=== PATIENT | male | born 1980 | race Caucasian/White ===

== ENCOUNTER 2024-05-11 09:00 | Emergency (ER) | payer MEDICAID, SELFPAY ==
[2024-05-11 09:02] VITALS: BP 154/88; PULSE 79; RESP 18; TEMP 36.3; O2SAT 100; BMI 43.4
--- NOTE | 2024-05-11 09:25 | CT_ITS ---
STUDY: CT ABDOMEN AND PELVIS WITH CONTRAST REASON FOR EXAM: Male, 44 years old. 3 day history of bilateral flank pain. RADIATION DOSAGE (If Supplied By Facility): CTDIvol = ( 20.40 ) mGy, DLP = ( 1509.54 ) mGycm TECHNIQUE: Transaxial images were obtained from the dome of the diaphragm to the symphysis pubis without oral contrast. IV 100mL Isovue-370 was administered. Sagittal and coronal images were reconstructed. Individualized dose optimization techniques were used for this CT. COMPARISON: None. FINDINGS: Calcified granulomas in the lower lobes. The visualized portions of the heart are within normal limits. There is decreased attenuation of the liver consistent with steatosis. Normal gallbladder and extrahepatic biliary system. Normal spleen. Normal pancreas. Normal bilateral adrenal glands. Normal right kidney. Normal left kidney. Normal visualized stomach. Normal small intestine. Normal colon. The appendix is visualized and appears normal. There is scattered atherosclerotic calcification of the abdominal aorta, without a demonstrated aneurysm. Normal inferior vena cava. Normal retroperitoneum. Normal urinary bladder. There is a small umbilical hernia containing fat. There are mild degenerative changes of the visualized lumbar spine. Straightening of the normal lumbar lordosis. CT/Abdomen/Pelvis W IV Cont ONLY IMPRESSION: Fatty infiltration of the liver. Electronically Signed: Chris Kam MD at 11:02 [facility] ,
[2024-05-11 09:36] LABS: Bacteria 0 SEEN /hpf (None Seen); Mucous, Urine 0 SEEN /hpf (<or=2+); Red Blood Cells-Urine 0 SEEN /hpf (0-5); Squamous Epithelial Cells - UA 0 SEEN /hpf (0-5); White Blood Cells 0 SEEN /hpf (0-5)
[2024-05-11] MEDS: Morphine 4 MG/ML Syringe IV (09:38)
[2024-05-11] MEDS: 0.9% Normal Saline (1000mL) 1,000 ML 999 ML IV (09:38)
[2024-05-11] MEDS: Ondansetron 4 MG/2 ML Vial IV (09:38)
[2024-05-11 09:40] LABS: Absolute Lymphocyte Count 1.46 X10^3/uL (0.83-4.51); Absolute Neutrophil Count 3.9 X10^3/uL (2.0-7.7); Basophil# 0.04 X10^3/uL; Basophil% 0.7 % (0-1); Eosinophil# 0.09 X10^3/uL; Eosinophils% 1.5 % (0-5); Hematocrit 43.1 % (40-54); Hemoglobin 14.9 g/dL (13.0-16.5); Lymphocyte # 1.46 X10^3/ul (0.83-4.51); Lymphocyte % 23.9 % (19-41); Mean Corp Hgb Conc 34.6 g/dL (32-36); Mean Corpuscular Hgb 30.8 pg (27.0-32.0); Mean Platelet Vol. 9.6 fl (6.2-12.0); Monocyte# 0.56 X10^3/uL; Monocyte% 9.2 % (0-10); NRBC Flagged by Analyzer 0 % (0-5); Neutrophil # 3.89 X10^3/uL (2.7-7.7); Neutrophil % 63.7 % (47-70); Platelet Count 198 K/mm3 (150-450); RBC Distribution Width CV 11.8 % (11.6-14.6); RBC Distribution Width SD 37.7 fl (35.1-43.9); Red Blood Count 4.84 M/mm3 (4.6-6.2); White Blood Count 6.1 K/mm3 (4.4-11.0)
--- NOTE | 2024-05-11 09:42 | ED.VIS.FEGU ---
HPI HPI - Female History of Present Illness Chief Complaint: Flank Pain Narrative Narrative: Chief complaint and HPI: Bilateral flank pain and abdominal pain. 44-year-old male with history of chronic back pain after a fall from height presents for evaluation of bilateral flank pain and abdominal pain. Onset of symptoms was Thursday evening. Patient states that his bilateral flank pain has been constant and intermittently intensifies. It radiates to the abdomen. He denies any history of kidney stones in himself but has a family history of them. He states he went to an urgent care yesterday and was negative for a UTI. Associated symptom is nausea and diarrhea that started today. He denies any fever, chills, chest pain, shortness of breath, vomiting, bloody bowel movements, dysuria, testicular pain. Has been eating and drinking well. Review of systems: See HPI Medications: As listed on the chart Allergies: As listed on the chart PFSH: Per chart Vital signs: As listed on the chart. Reviewed. Physical exam: Gen: A&O x3, NAD Head: Normocephalic, atraumatic Eyes: No sclera icterus, conjunctiva clear ENT: Moist mucous membranes Neck: Trachea midline, No JVD CV: RRR, no murmurs, no peripheral edema Resp: Lungs CTA BL, no w/r/c GI: Abd soft, non-distended, mildly tender to palpation diffusely, no r/r/g : No CVA tender, Circumcised penis. No penile tenderness or discharge. No penile or testicular swelling. Normal lie and position of the testicles. No testicular tenderness, masses, or skin changes. Cremasteric reflexes intact and equal bilaterally. No rashes. No palpable hernias. Musc: Full ROM, no deformity, mild tenderness to palpation of the paraspinal musculature of the lumbar spine bilaterally, no midline spinal tenderness Skin: Warm, dry Neuro: Alert, oriented, grossly intact, sensation intact Psych: Cooperative, appropriate mood and affect PFS PFSH Allergy/AdvReac Type Severity Reaction Status Date / Time No Known Allergies Allergy Verified 05/11/24 09:00 Social History Smoking Status: Never smoker EXAM Physical Exam Const Vital Signs: 05/11/24 09:02 05/11/24 11:00 05/11/24 12:10 Temperature 97.3 F L 98.7 F Temperature Source Oral Pulse Rate 79 78 78 Respiratory Rate 18 16 18 Blood Pressure 154/88 H 126/78 H 125/78 H Blood Pressure Mean 110 94 93 Pulse Ox 100 98 99 Oxygen Delivery Method Room Air Room Air MDM MDM MDM Narrative Medical decision making narrative: 44-year-old male with history of chronic back pain after a fall from height presents for evaluation of bilateral flank pain and abdominal pain. Differential diagnosis includes but is not limited to urolithiasis, gastroenteritis, colitis, appendicitis, pancreatitis, viral illness, UTI, muscle spasm. Morphine, NS bolus, Zofran ordered for symptoms. Abdominal pain workup ordered including CT abdomen and pelvis. CBC without leukocytosis or anemia. CMP relatively unremarkable. No transaminitis. No elevated lipase. UA negative for UTI. CT abdomen pelvis shows fatty infiltration of the liver otherwise no acute process. At this point in time, no clear etiology for patient's symptoms. On reevaluation patient states his pain has improved. Patient did just develop diarrhea today, may be developing viral illness. Monitor for worsening symptoms. Follow-up with PCP. Return precautions explained. He confirmed understand the plan. Patient stable to discharge home. Impression: 1. Abdominal pain 2. Diarrhea Lab Data Labs: Laboratory Results - last 24 hr 05/11/24 09:31 WBC 6.1 RBC 4.84 Hgb 14.9 Hct 43.1 MCV 89.0 MCH 30.8 MCHC 34.6 RDW Std Deviation 37.7 RDW Coeff of [place] 11.8 Plt Count 198 MPV 9.6 Immature Gran % (Auto) 1.000 H Neut % (Auto) 63.7 Lymph % (Auto) 23.9 [place] % (Auto) 9.2 Eos % (Auto) 1.5 Baso % (Auto) 0.7 Absolute Neuts (auto) 3.9 Absolute Lymphs (auto) 1.46 Nucleated RBC % 0 Sodium 138 Potassium 4.1 Chloride 109 H Carbon Dioxide 25.0 Anion Gap 4 L BUN 17 Creatinine 1.00 Estim Creat Clear Calc 132.80 Est GFR (MDRD) Af Amer 103 Est GFR (MDRD) Non-Af 86 BUN/Creatinine Ratio 17.0 Glucose 109 H Calcium 9.1 Total Bilirubin 0.50 AST 19 ALT 56 Alkaline Phosphatase 73 Total Protein 7.4 Albumin 3.8 Globulin 3.6 Albumin/Globulin Ratio 1.1 Lipase 29 Urine Color Yellow Urine Clarity Clear Urine pH 7.0 Ur Specific [place] 1.010 Urine Protein Negative Urine Glucose (UA) Normal Urine Ketones Negative Urine Occult Blood Negative Urine Nitrite Negative Urine Bilirubin Negative Urine Urobilinogen Normal Ur Leukocyte Esterase Negative Urine RBC 0 SEEN Urine WBC 0 SEEN Ur Squamous Epith Cells 0 SEEN Urine Bacteria 0 SEEN Urine Mucus 0 SEEN Radiography Diagnostic Testing: Clinical Impression(s) from Imaging Studies Abdomen/Pelvis CT 05/11/24 09:25 IMPRESSION: Fatty infiltration of the liver. Electronically Signed: Chris Kam MD at 11:02 EST , Discharge Plan Triage Chief Complaint: Flank Pain ED Provider: Rick Santiago Dx/Rx/DC Orders Clinical Impression: Abdominal pain of unknown cause Instructions: Abdominal Pain, ED Flank Pain, Uncertain Cause Primary Care Provider: Apurva Boudreaux Referrals: Apurva Boudreaux, [employer] [Primary Care Provider] - 3-5 Days Activity Restrictions/Additional Instructions: Return back to the ED if symptoms change or worsen. Follow-up with your primary care physician. You do have fatty liver seen on your CT. Tylenol and Motrin as needed for pain. Print Language: Croatian Disposition Disposition: Home, Self Care Discharge Date/Time: 05/11/24 12:11
[2024-05-11 09:45] LABS: Color, Urine Yellow (Yellow); Glucose, Dipstick Normal (Normal); Ketone-Dipstick Negative (Negative); Leukocyte Esterase-Dipstick Negative /ul (Negative); Nitrite-Dipstick Negative (Negative); Occult Blood-Urine Negative /ul (Negative); Protein-Dipstick Negative (Negative); Urine Bilirubin Dipstick Negative (Negative); Urine Clarity Clear (Clear); Urine Urobilinogen Normal (Normal)
[2024-05-11 09:56] LABS: ALB/GLOB Ratio 1.1 RATIO (0.9-2.4); AST(SGOT) 19 U/L (15-37); Alanine Aminotransfer ALT/SGPT 56 U/L (16-61); Albumin, Serum 3.8 g/dL (3.2-5.0); Alkaline Phosphatase 73 U/L (45-117); Anion Gap 4 (5-15); BUN 17 mg/dL (7-18); Calcium,Total 9.1 mg/dL (8.5-10.1); Chloride 109 mmol/L (98-107); EST Glomerular Filtration Rate 86 mL/min (>60); Est Glom Filt Rate - Afr Amer 103 mL/min (>60); Globulin 3.6 g/dL (2.2-4.2); Glucose 109 mg/dL (74-106); Lipase 29 U/L (13-75); Potassium 4.1 mmol/L (3.5-5.1); Protein, Total 7.4 g/dL (6.4-8.2); Sodium Level 138 mmol/L (136-145)
[2024-05-11 11:00] VITALS: BP 126/78; PULSE 78; RESP 16; O2SAT 98
[2024-05-11 12:10] VITALS: BP 125/78; PULSE 78; RESP 18; TEMP 37.1; O2SAT 99
== END 2024-05-11 12:11 | disposition home or self-care (01) ==
PROVIDERS: Emergency Provider Surgery; PCP Nurse Practitioner Family; Visit Provider Surgery
DX: R10.9 Unspecified abdominal pain (principal); R19.7 Diarrhea, unspecified
CPT/HCPCS: 74177; 80053; 81001; 83690; 85025; 96361; 96374; 96375; 99283; Q9967; J2405

== ENCOUNTER → 2024-06-10 | Outpatient (CLI) | payer MEDICAID, SELFPAY ==
--- NOTE | 2024-06-10 11:45 | RAD_ITS ---
STUDY: X-RAY - LEFT SHOULDER REASON FOR EXAM: Male, 44 years old. Shoulder injury TECHNIQUE: 4 view(s) of the shoulder. COMPARISON: None. FINDINGS: There is severe degenerative arthrosis of the glenohumeral articulation. There is hypertrophic osteoarthrosis of the acromioclavicular joint with inferior osseous spur formation. Normal acromion. Normal humeral head and visualized proximal humerus. Prior surgical intervention. The soft tissue structures are unremarkable. Normal visualized pulmonary apex. RAD/Shoulder min 2 Views IMPRESSION: Degenerative changes. Electronically Signed: Chris Kam MD at 12:44 EST ,
--- NOTE | 2024-06-10 11:45 | RAD_ITS ---
STUDY: X-RAY - LEFT HUMERUS REASON FOR EXAM: Male, 44 years old. Arm injury TECHNIQUE: 4 view(s) of the humerus. COMPARISON: None. FINDINGS: Healed fracture of the proximal humerus. Marked degree of bone or joint space narrowing of the glenohumeral joint. Prior surgical changes of the humeral head. There is no demonstrated soft tissue abnormality. RAD/Humerus min 2 Views IMPRESSION: No acute fractures seen. Prior healed fracture of the proximal humerus and postsurgical changes. Electronically Signed: Chris Kam MD at 12:39 EST ,
== END | disposition home or self-care (01) ==
LOC: MTRAD 11:45
PROVIDERS: PCP Nurse Practitioner Family; Referring Provider Physician Assistant Surgical; Visit Provider Physician Assistant Surgical
DX: S49.90XA Unspecified injury of shoulder and upper arm, unspecified arm, initial encounter (principal)
CPT/HCPCS: 73030; 73060